=== PATIENT | male | born 1950 | race Caucasian/White ===

== ENCOUNTER → 2016-09-21 | Outpatient (CLI) | payer BC ==
[~2016-09-21] MED LIST: COZAAR 50 MG TA50 M2 PO; ORACEA40 MG PO; PROSCAR 5MG TABL5 MG PO; RAPAFLO8 MG PO; SIMVASTATIN40 MG PO; [UNRECOGNIZED DRUG - OTHER] INJECTION
--- NOTE | ~2016-09-21 | EKG ---
[address] [address] ELECTROCARDIOGRAM REPORT Name: MARIAM BARBOSA Room #: [id number]: 09/21/16 Attend Phys: Jarvis Kang MD Discharge: Date of : 50 Report #: [id number] THIS REPORT FOR: //name// [facility] Test Date: 2016-09-21 Test Time: 08:51:51 Pat Name: MARIAM BARBOSA Department: Room: Gender: M Leaflet Distributor: mary alice : 1950 Requested By: Jarvis Kang Order Number: [id number] MD: Lb Puri Measurements Intervals Nahma Rate: 59 P: 63 ND: 168 QRS: 29 QRSD: 91 T: 45 QT: 417 QTc: 414 Interpretive Statements Sinus rhythm No significant abnormality No previous ECG available for comparison Electronically Signed On 09-22-2016 8:03:33 CDT by Lb Puri [email or web address] <ELECTRONICALLY SIGNED> By: Lb Puri MD, [facility] 09/22/16 [phone] Lb Puri MD, FACC /EPI
== END ==
LOC: CV 06:06
DX: E21.0 Primary hyperparathyroidism (principal)

== ENCOUNTER 2016-10-04 05:27 | Day surgery (SDC) | payer BC, OTHER ==
[~2016-10-04] VITALS: Ht 177.8 cm; Wt 81.6 kg
--- NOTE | ~2016-10-04 | S ---
[facility] [place] [address] SURGICAL PATH RPT PROCEDURE Name: MARIAM BARBOSA Room #: DEP [facility]..#: [id number] Admission: 10/04/16 Date of : 50 Discharge: 10/05/16 Report #: [id number] Path Case #: [id number] PATHOLOGY REPORT COLLECTION DATE: 10/04/2016 RECEIVED DATE: 10/04/2016 SUBMITTING PHYS: Dr. Jarvis Kang OTHER PHYS: Dr. Allan Ferguson SPECIMEN(S) RECEIVED: A.Left inferior parathyroid with thymus B.Left superior parathyroid C.Right inferior parathyroid D.Right superior portion of parathyroid * * * * * * * * * * * * FINAL DIAGNOSIS: A. "Left inferior parathyroid with thymus," parathyroidectomy and excision: - Parathyroid gland with nodular hyperplasia. - Thymus with atrophy and otherwise minimal histologic alterations. B. "Left superior parathyroid," parathyroidectomy: - Parathyroid gland with nodular hyperplasia. C. "Right inferior parathyroid," parathyroidectomy: - Parathyroid gland with nodular hyperplasia. - Lymph node with mild reactive changes. D. "Right superior portion of parathyroid," biopsy: - Parathyroid gland, partially sampled, with nodular hyperplasia. (CLW:; 10/05/2016) PATHOLOGIST: Jeanine Segal M.D. REPORT ELECTRONICALLY SIGNED BY: Jeanine Segal M.D. DATE/TIME: 10/05/2016 23:15 * * * * * * * * * * * * GROSS PATHOLOGY: A. Received fresh from the OR labeled, "[place], left inferior parathyroid with thymus". It consists of a parathyroid gland weighing less than 0.1 grams and measuring 0.7 x 0.6 x 0.5 cm. It is attached to a portion of yellow lobular fatty tissue consistent with thymus measuring 2.0 x 1.4 x 0.6 cm. The parathyroid gland is inked blue. It is bisected and entirely submitted for one frozen section. The frozen section and the unfrozen portion of thymus are entirely submitted as A1. B. Received fresh from the OR labeled, "[place], superior parathyroid left". It consists of a parathyroid gland weighing less [facility] [address] [place] [address] SURGICAL PATH RPT PROCEDURE Name: MARIAM BARBOSA Room #: DEP [facility] M.R.#: [id number] Admission: 10/04/16 Date of : 50 Discharge: 10/05/16 Report #: [id number] Path Case #: [id number] than 0.1 grams and measuring 0.6 x 0.3 x 0.3 cm. It is inked black. It is entirely submitted for one frozen section. The frozen section has been submitted as B1. C. Received fresh from the OR labeled, "[place], right inferior r/o parathyroid". It consists of a parathyroid gland weighing less than 0.1 grams and measuring 0.8 x 0.5 x 0.5 cm. This is entirely submitted for one frozen section. The frozen section has been submitted as C1. D. Received fresh from the OR labeled, "[place], right superior portion of parathyroid". It consists of a portion of parathyroid gland weighing less than 0.1 grams and measuring 0.5 x 0.3 x 0.3 cm. It is entirely submitted for one frozen section. The frozen section has been submitted as D1. (CLW:juan a; 10/04/2016) FROZEN SECTION DIAGNOSIS: (Katerina Segal MD) A. "Left inferior parathyroid with thymus": - Parathyroid gland present. B. "Superior parathyroid left": - Parathyroid present. C. "Right inferior r/o parathyroid": - Parathyroid present. D. "Right superior portion of parathyroid": - Parathyroid present. The case was discussed with Dr. Jarvis Kang in the operating room following the frozen sections and written reports are placed in the patient's chart. Testing performed by [email or web address] at [address] , [place] [address] CLINICAL HISTORY: Primary hyperparathyroidism. INITIAL CPT CODE(S): A; 04270, 75426, 79362 B; 38234, 14016 C; 02993, 33536, 28715 D; 97649, 36292 Professional services performed by [facility] at [address], [place] [address] Technical services performed by [facility] at [address] [place] [address], [address], [place] [address]. [address] [address] SURGICAL PATH RPT PROCEDURE Name: MARIAM BARBOSA Room #: DEP [facility] Deya#: [id number] Admission: 10/04/16 Date of : 50 Discharge: 10/05/16 Report #: [id number] Path Case #: [id number] [facility] [address] [address] PHONE: [phone] DIRECTOR: Cliff Chatman M.D. * * * END OF REPORT * * *
[2016-10-04] MEDS ORDERED: TUMS CHEWA500 MG/11 PO (16:00)
[2016-10-04] MEDS ORDERED: ONDANSETRON HCL4 M1 IV PUSH (16:00)
[2016-10-04] MEDS ORDERED: CLEOCIN HCL150 MG PO (16:00)
[2016-10-04] MEDS ORDERED: CALCITRIOL0.25 MCG PO (16:00)
[2016-10-04] MEDS ORDERED: NORCO 7.5-3251 EACH PO (16:00)
[2016-10-04 16:25] LABS: ALBUMIN 4.1 g/dL (3.4-5.0)
[2016-10-04 16:45] VITALS: BP 155/109
[2016-10-04 17:15] VITALS: BP 164/111
[2016-10-04 18:15] VITALS: BP 144/110
[2016-10-04 20:05] VITALS: BP 133/105
[2016-10-04 23:30] VITALS: BP 134/82
[2016-10-05 04:40] VITALS: BP 133/82
[2016-10-05 07:39] VITALS: BP 133/82
== END 2016-10-05 09:16 | disposition home or self-care (01) ==
LOC: OR → TBA 05:27 → OR 08:29 → PRE 13:30 → EDSTATUS 13:43 → OR 13:51 → 4E 16:52 → OR 10-05 09:16
PROVIDERS: Otolaryngology Plastic Surgery within the Head & Neck
DX: E21.0 Primary hyperparathyroidism (principal); N20.0 Calculus of kidney; I10 Essential (primary) hypertension; Z85.51 Personal history of malignant neoplasm of bladder; Z98.890 Other specified postprocedural states; Z88.0 Allergy status to penicillin; Z79.899 Other long term (current) drug therapy; Z98.41 Cataract extraction status, right eye; Z98.42 Cataract extraction status, left eye; Z96.1 Presence of intraocular lens
CPT/HCPCS: 50010; 50101; 50386; 50417; 52190; 52220; 52225; 52287; 56524; 56526; 56528; 56760; 57006; 62110; 62900; 70005